=== PATIENT | female | born 1970 | race Caucasian/White ===

== ENCOUNTER → 2018-03-23 | Outpatient (CLI) | payer OTHER | END | disposition home or self-care (01) | LOC: C.RDSM 10:04 | PROVIDERS: ATTEND Orthopaedic Surgery | DX: R52 Pain, unspecified (principal) ==

== ENCOUNTER → 2018-03-29 | Outpatient (CLI) | payer OTHER ==
[~2018-03-29] MED LIST: GADAVIST IV PRN
--- NOTE | 2018-03-29 14:10 | DIAGNOSTIC IMAGING REPORT ---
R INJECTION KNEE PRE MRI CLINICAL HISTORY: 47 years-old Female presenting with RIGHT KNEE ARTHROGRAM PRE MRI. COMPARISON: 03/23/2018. PROCEDURE: The risks, benefits, and alternatives to the procedure were discussed with the patient. Written informed consent was obtained. The patient was placed supine on the fluoroscopy table, and a right knee injection was performed under fluoroscopic guidance. The patient's preprocedural reported pain on a scale of 1-10 was reported as 1 out of 10. The area was prepped and draped in the usual sterile fashion. The skin and soft tissues anesthetized with local 1% lidocaine. The right knee joint was accessed utilizing a 22-gauge needle, and approximately 35 cc of a mixture of gadolinium contrast, Optiray 300, 0.5% ropivacaine, and saline was injected into the joint space under fluoroscopic guidance. There was normal distention of the capsule. The procedure was well tolerated without immediate complication. The patient was then transferred to MRI for MR arthrography. Fluoroscopy dosage (mGy): Not available. Fluoroscopy time: 14 seconds. Number or time of fluoroscopic spot images: 0. IMPRESSION: Successful injection of the right knee under fluoroscopic guidance. Electronically signed by: Francisco Ulloa M.D. 03/29/2018 2:08 PM Dictated Date/Time: 03/29/2018 2:05 PM
--- NOTE | 2018-03-30 08:31 | DIAGNOSTIC IMAGING REPORT ---
MRI ARTHROGRAM OF THE RIGHT KNEE CLINICAL HISTORY: Right knee effusion. Right knee swelling. Evaluate for meniscal tear. COMPARISON STUDY: Right knee radiographs March 23, 2018. TECHNIQUE: Following a fluoroscopically guided right knee arthrogram and utilizing a 1.5 Deirdre magnet, multiplanar, multi echo imaging of the right knee was performed without intravenous contrast. FINDINGS: Alignment of the right knee is anatomic. Extensor mechanism is intact. Cruciate and collateral ligaments are intact. No marrow edema or marrow replacement is present. No joint body is identified. There is mild lateral patellar tilt. No meniscal tear is identified. Note is made of a 11 mm x 4 mm focus of high-grade chondrosis within the lateral femoral condyle. There is also severe chondrosis of the medial femoral condyle. Note is made of moderate to severe chondrosis of the lateral patellar cartilage as well as moderate chondrosis of the cochlear cartilage. No mass or fluid collection is shown adjacent to the right knee. Distention of the joint space by dilute gadolinium is excellent. IMPRESSION: 1. 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 2. No meniscal tear. 3. Intact cruciate and collateral ligaments. Electronically signed by: Tay Stern M.D. 03/30/2018 8:29 AM Dictated Date/Time: 03/29/2018 2:25 PM
== END | disposition home or self-care (01) ==
PROVIDERS: ATTEND Orthopaedic Surgery
DX: M25.461 Effusion, right knee (principal); M22.41 Chondromalacia patellae, right knee